=== PATIENT | male | born 1970 | race Caucasian/White ===

== ENCOUNTER → 2024-02-10 | Outpatient (CLI) | payer MEDICAID, SELFPAY ==
[2024-02-10 17:48] LABS: Erythrocyte Sedimentation Rate < 1 mm/hr (0-20)
[2024-02-10 18:13] LABS: CRP < 2.90 mg/L (0.0-3.0); Rheumatoid Factor < 10.0 IU/mL (<15)
[2024-02-10 18:36] LABS: Syphilis Antibodies Non-reactive
[2024-02-15 15:08] LABS: ANTINUCLEAR ANTIBODIES DIRECT Negative (Negative)
== END | disposition home or self-care (01) ==
PROVIDERS: Referring Provider Ophthalmology; Visit Provider Ophthalmology
DX: H20.011 Primary iridocyclitis, right eye (principal); H43.89 Other disorders of vitreous body
CPT/HCPCS: 36415; 81374; 82164; 85652; 86038; 86140; 86200; 86225; 86235; 86256; 86431; 86780